=== PATIENT | female | born 1955 | race Caucasian/White ===

== ENCOUNTER 2021-11-17 03:53 | Emergency (ER) | payer MEDICARE ==
[2021-11-17 04:10] VITALS: BP 155/83; O2SAT 98
[2021-11-17] MEDS ORDERED: Bicillin L-A 1.2 Mu/2ML SYRINGE IM ONE ×2 (04:15→04:20)
[2021-11-17] MEDS ORDERED: TORAdol 30 mg Injection IM ONE (04:16)
[2021-11-17] MEDS ORDERED: TORAdol 30 mg Injection ONE (04:19)
--- NOTE | 2021-11-17 04:23 | ERPHSYRPT ---
- History of Present Illness Source: patient Exam Limitations: no limitations Patient Subjective Stated Complaint: pt states "I had 3 teeth removed and impaction done on October 11 with no complications. It just began to swell yesterday." Triage Nursing Assessment: pt ambulated into the er; pt is axo x4; c/o left facial swelling; pt states 8/10 pain to left side of face; swelling to left jaw; no dental decay or caries present; no redness or swelling present to gum; hyp ertensive Physician History: Pt w L mandibular edema and pain x 1 day. Pt called dentist who made appointment next week. PCP called in antibiotics, but pharmacy said that Rx did not arrive. She had multiple teeth removed in September. Fever is denied, and she is in moderate pain. Timing/Duration: yesterday Severity: moderate ENT Location: dental (L mandibular) Prearrival Treatment: no prearrival treatment Associated Symptoms: facial pain/swelling, jaw pain, No ear pain (R), No ear pain (L), No cough, No fever, No chills, No change in hearing, No dizziness, No drooling, No ear drainage, No headache, No hearing loss, No malaise, No motion sickness, No nasal congestion/drainage, No epistaxis, No nasal foreign body, No neck pain, No poor fluid intake, No poor solids intake, No ringing of ears, No swollen glands, No sinus infection, No sore throat, No tooth pain, No difficulty swallowing, No voice change Allergies/Adverse Reactions: No Known Drug Allergies Allergy (Unverified 11/13/12 12:29) Home Medications: Dextroamphetamine/Amphetamine [Adderall 20 mg Tablet] 20 mg PO DAILY 11/13/12 [History] Lisinopril 20 mg [Zestril 20 MG] 20 mg PO DAILY 11/13/12 [History] Tramadol HCl 50 mg [Ultram 50 mg] 50 mg PO Q4-6HPRN PRN 11/13/12 [History] Hx Tetanus, Diphtheria Vaccination/Date Given: Yes Hx Influenza Vaccination/Date Given: Yes Hx Pneumococcal Vaccination/Date Given: Yes Travel Risk - International Travel Have you traveled outside of the country in past 3 weeks: No - Coronavirus Screening Are you exhibiting any of the following symptoms?: No Close contact with a COVID-19 positive Pt in past 14-21 Days: No - Vaccine Status Have you recieved a Covid-19 vaccination: Yes Bacteriologist Dairy: Pfizer - Vaccination Dates Date of 2cond Vaccination (if applicable): unknown Comment: pt states she received booster - Review of Systems Constitutional: No Symptoms Eyes: No Symptoms Ears, Nose, & Throat: No Symptoms, Mouth Pain, Mouth Swelling Respiratory: No Symptoms Cardiac: No Symptoms Abdominal/Gastrointestinal: No Symptoms Genitourinary Symptoms: No Symptoms Musculoskeletal: No Symptoms Skin: No Symptoms Neurological: No Symptoms Psychological: No Symptoms Endocrine: No Symptoms, Excessive Sweating Immunological/Allergic: No Symptoms - Past Medical History Pertinent Past Medical History: Yes Neurological History: No Pertinent History Cardiac History: Hypertension Respiratory History: No Pertinent History Endocrine Medical History: No Pertinent History Musculoskeletal History: Osteoarthritis Other Medical History: NO OTHER SIGNIFICANT SX OR PMHX - Past Surgical History Past Surgical History: Yes Other Surgical History: BASIL CELL CANCER REMOVED - Social History Smoking Status: Never smoker Exposure to second hand smoke: No Drug Use: none Patient Lives Alone: Yes Significant Family History: no pertinent family hx - Nursing Vital Signs Nursing Vital Signs: Initial Vital Signs Temperature 97.8 F 11/17/21 04:01 Pulse Rate 95 H 11/17/21 04:01 Respiratory Rate 20 11/17/21 04:01 Blood Pressure 155/83 11/17/21 04:01 O2 Sat by Pulse Oximetry 98 11/17/21 04:01 Pain Scale Pain Intensity 8 Hypertensive - Physical Exam General Appearance: no apparent distress Eye Exam: bilateral eye: normal inspection, PERRL, EOMI Ear Exam: bilateral ear: auricle normal, canal normal, TM normal Nasal Exam: foreign body Throat Exam: normal (Pt w great airway), pharynx normal (Remaining teeth L inferior dentition NTTP), mandibular swelling (L angle of mandible edema and TTP), moist mucus membranes, No excessive drooling, No pharynx swelling, No tongue swollen, No tonsillar exudate, No tonsillar swelling, No trismus, No uvula swelling, No voice changes Neck Exam: normal inspection, non-tender, supple, full range of motion, trachea midline, No JVD Cardiovascular/Respiratory Exam: normal breath sounds, regular rate/rhythm, heart sounds normal Abdominal Exam: non-tender, soft Neurologic Exam: alert, oriented x 3, cooperative, child care team lead II-XII nml as tested, normal mood/affect, nml station & gait, sensation nml, No motor deficits, No sensory deficit Skin Exam: normal color, warm, dry SpO2 Interpretation: normal SpO2: 98 O2 Delivery: Room Air - Course Nursing assessment & vital signs reviewed: Yes Ordered Tests: Medication Summary Discontinued Medications Generic Name Dose Route Start Last Admin Trade Name Freq PRN Reason Stop Dose Admin Ketorolac Tromethamine 60 mg 11/17/21 04:16 11/17/21 04:21 Ketorolac Tromethamine 30 Mg/Ml Inj IM 11/17/21 04:17 60 mg STAT ONE Administration Ketorolac Tromethamine Confirm 11/17/21 04:19 Ketorolac Tromethamine 30 Mg/Ml Inj Administered 11/17/21 04:20 Dose 60 mg .ROUTE .STK-MED ONE Penicillin G Benzathine 1.2 mu 11/17/21 04:15 11/17/21 04:21 Penicillin G Benzathine 1.2 Mu/2 Ml Syringe IM 11/17/21 04:16 1.2 mu STAT ONE Administration Penicillin G Benzathine Confirm 11/17/21 04:20 Penicillin G Benzathine 1.2 Mu/2 Ml Syringe Administered 11/17/21 04:21 Dose 1.2 mu IM .STK-MED ONE - Progress Progress: improved Progress Note: 11/17/21 04:26 60mg IM Toradol 1.2 MU IM Darius Counseled pt/family regarding: diagnosis, need for follow-up - Departure Departure Disposition: Home Clinical Impression: Dental abscess Condition: Stable Critical Care Time: No Referrals: HUBERT GODINEZ NP [Primary Care Provider] - Follow up/PCP as directed Instructions: Tooth Abscess (DC) Additional Instructions: Dentist ROBE Start Augmentin in AM [place] as needed for pain Return to ER for increasing pain, trouble swallowing, temperature greater than 100.5, or increased swelling Prescriptions: Hydrocodone/Acetaminophen [Hydrocodone-Acetamin 5-325 mg] 1 tab PO Q6HPRN PRN #8 tablet MDD 4 PRN Reason: Pain Amox Tr/Potass Clav. 875 mg [Augmentin 875-125 Tablet] 875 mg PO BID #14 tablet
[2021-11-17 04:37] VITALS: PULSE 92
== END 2021-11-17 04:43 | disposition home or self-care (01) ==
LOC: ED 03:53
DX: K04.7 Periapical abscess without sinus (principal); R68.84 Jaw pain; I10 Essential (primary) hypertension; Z79.891 Long term (current) use of opiate analgesic
CPT/HCPCS: 96372; 99284; J0561; J1885

== ENCOUNTER 2023-03-05 17:23 | Emergency (ER) | payer MEDICARE ==
[2023-03-05 17:57] VITALS: TEMP 97.1; O2SAT 97
[2023-03-05 18:13] LABS: Absolute Neutrophil Ct (ANC) 7.46 x10^3/uL (1.4-6.9); BASOPHIL % 0.6 % (0.0-0.4); Basophil (Absolute #) 0.06 x10^3/uL (0-0.4); Eosinophil % 1.6 % (0.00-5.0); Eosinophil (Absolute #) 0.17 x10^3/uL (0-0.5); Hematocrit 40.2 % (35-47); Hemoglobin 12.8 g/dL (12.0-16.0); IMMATURE GRAN # 0.04 x10^3u/L (0.00-0.03); IMMATURE GRAN % 0.4 % (0.00-0.4); Lymphocytes % 16.2 % (24.0-44.0); Mean Corpuscular Hgb Concent. 31.8 g/dL (32-36); Mean Platelet Volume 10.8 fL (7.5-11.0); Monocyte (Absolute #) 1.06 x10^3/uL (0.0-1.3); Monocytes % 10.1 % (0.0-12.0); Neutrophil % 71.1 % (36.0-66.0); Platelet Count 275 x10^3/uL (150-450); Red Blood Count 4.42 x10^6/uL (4.1-5.4); Red Cell Distribution Width 13.3 % (11.5-14.0); White Blood Count 10.5 x10^3/uL (4.0-10.5)
[2023-03-05 18:40] LABS: ALBUMIN 4.1 g/dL (3.5-5.0); ALKALINE PHOSPHATASE 73 U/L (38-126); AMYLASE 44 U/L (30-110); ANION GAP 17.8 MEQ/L (5-15); BLOOD UREA NITROGEN 23 mg/dL (7-17); CHLORIDE 102 mmol/L (98-107); Calcium 9.5 mg/dL (8.4-10.2); Carbon Dioxide 23 mmol/L (22-30); Creatinine 1 0.96 mg/dL (0.52-1.04); EST GLOMERULAR FILTRATION RATE > 60.0 ML/MIN; Glucose 140 mg/dL (74-106); LIPASE 27 U/L (23-300); Potassium 4.6 mmol/L (3.5-5.1); SGOT/AST 22 U/L (14-36); SGPT/ALT 18 U/L (0-35); SODIUM 138 mmol/L (137-145); Total Protein 7.2 g/dL (6.3-8.2)
[2023-03-05] MEDS ORDERED: Hydromorphone 1 mg/ml Injection ONE (19:06)
[2023-03-05 19:24] LABS: Appearance Clear (Clear); Bacteria None Seen /HPF (None Seen); Bilirubin Negative (Negative); Blood Negative (Negative); Epithelial Cells None Seen /HPF (None Seen); Glucose, Urine Negative (Negative); Hyaline Casts NONE SEEN /LPF (0-2); Ketones Negative (Negative); Leukocyte Esterase Small (Negative); Nitrite Negative (Negative); Protein,Urine Dip Negative (Negative); RBC 0-2 /HPF (0-5); Specific Gravity 1.015 (1.005-1.030); Urobilinogen 0.2 mg/dL (0.2)
[2023-03-05 19:33] LABS: ADD URINE CULTURE? NO (NO)
[2023-03-05] MEDS: Hydromorphone 1 mg/ml Injection IM ONE (19:41)
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
[2023-03-05] MEDS ORDERED: PERCOCET TABLET 5/325MG ONE (20:13)
[2023-03-05] MEDS: PERCOCET TABLET 5/325MG PO ONE (20:15)
[2023-03-05 20:22] VITALS: BP 110/77; PULSE 78; RESP 17
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
== END 2023-03-05 20:32 | disposition home or self-care (01) ==
LOC: ED 17:23
DX: S80.02XA Contusion of left knee, initial encounter (principal); S80.01XA Contusion of right knee, initial encounter; S80.12XA Contusion of left lower leg, initial encounter; S80.11XA Contusion of right lower leg, initial encounter; S90.02XA Contusion of left ankle, initial encounter; S90.01XA Contusion of right ankle, initial encounter; V43.51XA Car driver injured in collision with sport utility vehicle in traffic accident, initial encounter; I10 Essential (primary) hypertension; Z79.899 Other long term (current) drug therapy; Z79.891 Long term (current) use of opiate analgesic
CPT/HCPCS: 36415; 70450; 71045; 72125; 73560; 73562; 73590; 73610; 80053; 81001; 82150; 83605; 83690; 85025; 96372; 99285; J1170; A9270-GY